=== PATIENT | male | born 1975 | race Caucasian/White ===

== ENCOUNTER 2022-11-25 17:28 | Emergency (ER) | payer OTHER, SELFPAY ==
[2022-11-25 17:29] VITALS: BP 147/87; PULSE 83; RESP 18; TEMP 36.4; O2SAT 100; BMI 24.7
--- NOTE | 2022-11-25 17:45 | EX.ED.GENINJ ---
HPI <SIOMARA Cristina - Last Filed: 11/25/22 19:54> History of Present Illness Chief Complaint: Laceration Narrative Narrative: Patient presenting today with a laceration to his left axilla that he got earlier this evening. He reports that he was walking on concrete when a dip in the concrete caused him to slip and hit his axilla against a metal post. He is unsure of his last tetanus immunization. He is not on any blood thinners. He denies any other injury. PFSH <SIOMARA Cristina - Last Filed: 11/25/22 19:54> [facility] Medical History no medical history Home Medications NK 11/25/22 [History Last Taken Unknown] Allergy/AdvReac Type Severity Reaction Status Date / Time No Known Allergies Allergy Verified 11/25/22 17:31 Family History no significant family his Surgical History no surgical history Social History Smoking Status: Never smoker ROS <SIOMARA Cristina - Last Filed: 11/25/22 19:54> ROS ED Constitutional Constitutional ED: Denies chills or fever(s) Cardiovascular Cardiovascular: Denies chest pain or palpitations Respiratory/Chest Respiratory/Chest: Denies cough or dyspnea Gastrointestinal Gastrointestinal: Denies abdominal pain, nausea or vomiting Musculoskeletal Musculoskeletal: Denies arthralgias, back pain, myalgias or neck pain Integumentary Reports laceration Neurologic Neurologic: Denies paresthesias or weakness EXAM <SIOMARA Cristina Last Filed: 11/25/22 19:54> Physical Exam Const Vital Signs: 11/25/22 17:29 11/25/22 19:32 11/25/22 19:32 Temperature 97.6 F L Temperature Source Temporal Pulse Rate 83 Respiratory Rate 18 16 16 Blood Pressure 147/87 H Blood Pressure Mean 107 Pulse Ox 100 Oxygen Delivery Method Room Air Positive well nourished, well developed and no apparent distress General Appearance ED: well developed HEENT Reports normocephalic and head/scalp atraumatic Mouth ED: Yes moist mucous membranes normal Eyes PERRL and EOMs intact bilaterally Neck full ROM and supple Chest Wall inspection of chest normal Resp normal respiratory effort and clear to auscultation bilaterally Cardio regular rate and regular rhythm GI soft to palpation, non-tender, non-distended and no masses Back/Spine normal ROM and normal to inspection Extremity normal to inspection and full ROM Extremity Narrative: Radial pulses 2+ and equal bilaterally, good capillary refill, sensation intact. Full range of motion to patient's upper extremity. 6 cm subcutaneous linear laceration to the inferior left axilla with a 3.5 cm subcutaneous laceration just above it. Neuro oriented x3, CN's II-XII intact bilaterally, moves all extremities, no focal motor deficits and no sensory deficits noted Sensorium / Orientation: awake and alert Motor Exam: strength 5/5 throughout Psych mental status grossly normal and thought process normal <Dr. Davis Heart MD - Last Filed: 11/26/22 02:06> Physical Exam Const Vital Signs: 11/25/22 17:29 11/25/22 19:32 11/25/22 19:32 Temperature 97.6 F L Temperature Source Temporal Pulse Rate 83 Respiratory Rate 18 16 16 Blood Pressure 147/87 H Blood Pressure Mean 107 Pulse Ox 100 Oxygen Delivery Method Room Air PROC <SIOMARA Cristina - Last Filed: 11/25/22 19:54> Procedures Lacerations Laceration: Length: 3.74 in Depth: Sub Q Shape: Linear Prep: Chlorhexadine Laceration repair: Foreign material removed, Irrigated, Lidocaine with epi, Skin sutures, Subcutaneous sutures and Wound explored Irrigated (ml): 700 Number of Sutures/Del: 24 Suture Information: Vicryl (5-0), Ethilon (5-0), Simple and Mattress (vertical ) Comment: 1 laceration was 6 cm, next laceration was 3.5 cm [facility] <SIOMARA Cristina - Last Filed: 11/25/22 19:54> [facility] Narrative Medical decision making narrative: Patient presenting due to a laceration to his left axilla that he got this evening when he fell against a metal fence post, cutting his axilla. Tetanus will be updated here. The laceration will be extensively irrigated and cleaned with chlorhexidine. It will be sutured and bandaged. He has been given Tylenol for pain. Patient tolerated procedure well. He does not have a PCP, I have given him a referral for 1. He has been educated on signs of infection to look out for and reasons to return. He is to have sutures removed in 10 to 14 days. He will be discharged home in stable condition and is comfortable with plan. <Dr. Davis Heart MD - Last Filed: 11/26/22 02:06> [facility] Narrative Medical decision making narrative: Patient presenting due to a laceration to his left axilla that he got this evening when he fell against a metal fence post, cutting his axilla. Tetanus will be updated here. The laceration will be extensively irrigated and cleaned with chlorhexidine. It will be sutured and bandaged. He has been given Tylenol for pain. Patient tolerated procedure well. He does not have a PCP, I have given him a referral for 1. He has been educated on signs of infection to look out for and reasons to return. He is to have sutures removed in 10 to 14 days. He will be discharged home in stable condition and is comfortable with plan. I have personally performed a face to face assessment of the patient and have reviewed the NAIN Note. I performed a substantive portion of the visit including all aspects of the following. My boss findings include: History is remarkable for fall onto a wooden post. He sustained parallel lacerations left axilla. Patient had minimal bleeding. Patient denies paresthesia, anesthesia or motor weakness left upper extremity. Patient denies shortness of breath. Exam is patient has 2 lacerations left axilla. Radial pulses palpable and 2+ and symmetric. Axillary, median, radial and ulnar function intact. There is no pain the patient over the clavicle. There is no pain ovation over the rib cage. There is no crepitus subcutaneous air noted. There is no pain ovation over the humerus. Lungs are clear to auscultation with symmetric breath sounds. There is no hyperresonance to percussion. Depth of the wound was visualized and there is no evidence of foreign body. Medical Decision Making patient has a laceration which required repair. Patient underwent copious irrigation. The larger of the 2 lacerations was closed using 5-0 Vicryl and interrupted vertical mattress stitches were placed. The smaller of the 2 laceration was closed using simple interrupted sutures. Patient tolerated procedure well. Other additions or changes: Since this is not a contaminated wound and there is no foreign body antibiotics were not administered. He was discharged home with appropriate home-going instructions. Discharge Plan Triage Chief Complaint: Laceration ED Midlevel Provider: Ada Santos ED Provider: Davis Heart Dx/Rx/DC Orders Clinical Impression: Laceration Instructions: ED Laceration: All Closures Prescriptions: No Action NK Primary Care Provider: Care Physician,No Primary Referrals: Alfonzo Britton MD [Non-Staff] - 10-14 Days suture removal Care Physician,No Primary [Primary Care Provider] - Activity Restrictions/Additional Instructions: Please have sutures removed in 10 to 14 days. Keep an eye out for signs of infection and return if you notice any increased redness, swelling, pus-like discharge, or fever. Keep area clean and covered with antibiotic ointment and a bandage. Disposition Disposition: Home, Self Care Discharge Date/Time: 11/25/22 19:33
[2022-11-25] MEDS: Lidocaine 1% /Epi 1:100 (20ml) 20 ML Vial 10 ML INFILT (17:52)
[2022-11-25] MEDS: Acetaminophen 325 MG Tablet 650 MG PO (17:53)
[2022-11-25] MEDS: Diphth,Pertuss(Acell),Tet Vac 0.5 ML Vial IM (17:54)
[2022-11-25 19:32] VITALS: RESP 16
== END 2022-11-25 19:33 | disposition home or self-care (01) ==
PROVIDERS: Emergency Provider Emergency Medicine; Visit Provider Emergency Medicine
DX: S41.112A Laceration without foreign body of left upper arm, initial encounter (principal); W01.198A Fall on same level from slipping, tripping and stumbling with subsequent striking against other object, initial encounter; Z23 Encounter for immunization
CPT/HCPCS: 12032; 12002; 90715; 99283